=== PATIENT | female | born 1990 ===

== ENCOUNTER 2018-05-20 05:08 | Inpatient (IN) | payer BC ==
[~2018-05-20 05:08] MED LIST: Citric Acid/Sodium Citrate Solution 30 ML Cup PO ONE; Oxytocin/0.9 % Sodium Chloride 30 UNIT/500 ML BAG IV SCH; Sodium Chloride 0.9% 10 ML SDV IV PRN; Sodium Chloride 0.9% 10 ML Syringe FLUSH PRN; Sodium Chloride 0.9% 2.5 ML Syringe FLUSH PRN; ceFAZolin 2 GM in Premix Bag 1 BAG IV ONE
[2018-05-20] MEDS: Lactated Ringers 1,000 ML IV SCH ×2 (05:34→06:39)
--- NOTE | 2018-05-20 07:01 | PCM.PREANE ---
Preanesthetic Assessment - Anesthesia/Transfusion/Family Hx Anesthesia History: Prior Anesthesia Without Reaction Family History of Anesthesia Reaction: No Transfusion History: No Prior Transfusion(s) Intubation History: Unknown - Review of Systems General: No Symptoms Pulmonary: No Symptoms Cardiovascular: No Symptoms Gastrointestinal: No Symptoms Neurological: No Symptoms Other: Reports: None - Physical Assessment Height: 1.65 m Weight: 84.368 kg ASA Class: 2 Mental Status: Alert & Oriented x3 Airway Class: Mallampati = 1 Dentition: Reports: Normal Dentition, Broken Tooth/Teeth (upper right) Thyro-Mental Finger Breadths: 3 Mouth Opening Finger Breadths: 3 ROM/Head Extension: Full Lungs: Clear to Auscultation, Normal Respiratory Effort Cardiovascular: Regular Rate, Regular Rhythm - Lab Values: Laboratory Last Values WBC 11.08 K/uL (4.0-11.0) H 05/19/18 14:15 RBC 4.07 M/uL (4.30-5.90) L 05/19/18 14:15 Hgb 11.6 g/dL (12.0-16.0) L 05/19/18 14:15 Hct 33.7 % (36.0-46.0) L 05/19/18 14:15 MCV 82.8 fL (80.0-98.0) 05/19/18 14:15 MCH 28.5 pg (27.0-32.0) 05/19/18 14:15 MCHC 34.4 g/dL (31.0-37.0) 05/19/18 14:15 RDW Std Deviation 40.8 fl (28.0-62.0) 05/19/18 14:15 RDW Coeff of Leidy 14 % (11.0-15.0) 05/19/18 14:15 Plt Count 327 K/uL (150-400) 05/19/18 14:15 MPV 10.80 fL (7.40-12.00) 05/19/18 14:15 Nucleated RBC % 0.0 /100WBC 05/19/18 14:15 Nucleated RBCs # 0 K/uL 05/19/18 14:15 Blood Type O POSITIVE 05/19/18 14:15 Antibody Screen NEGATIVE 05/19/18 14:15 - Allergies Allergies/Adverse Reactions: Allergies Allergy/AdvReac Type Severity Reaction Status Date / Time No Known Allergies Allergy Verified 05/19/18 14:07 - Blood Blood Available: No - Anesthesia Plan Pre-Op Medication Ordered: None - Acknowledgements Anesthesia Type Planned: Spinal Pt an Appropriate Candidate for the Planned Anesthesia: Yes Alternatives and Risks of Anesthesia Discussed w Pt/Guardian: Yes Pt/Guardian Understands and Agrees with Anesthesia Plan: Yes PreAnesthesia Questionnaire HEENT History: Reports: None Cardiovascular History: Reports: None Respiratory History: Reports: None Gastrointestinal History: Reports: None Genitourinary History: Reports: None SURGICAL NURSE PRACTITIONER History: Reports: Musculoskeletal History: Reports: None Neurological History: Reports: None Psychiatric History: Reports: None Endocrine/Metabolic History: Reports: None Hematologic History: Reports: None Immunologic History: Reports: None Oncologic (Cancer) History: Reports: None Dermatologic History: Reports: None - Past Surgical History Head Surgeries/Procedures: Reports: None HEENT Surgical History: Reports: None Cardiovascular Surgical History: Reports: None Respiratory Surgical History: Reports: None GI Surgical History: Reports: None Female Surgical History: Reports: Section Endocrine Surgical History: Reports: None Neurological Surgical History: Reports: None Musculoskeletal Surgical History: Reports: None Oncologic Surgical History: Reports: None Dermatological Surgical History: Reports: None - SUBSTANCE USE Smoking Status *Q: Never Smoker Recreational Drug Use History: No - HOME MEDS Home Medications: Home Meds PNV95/Ferrous Fumarate/FA [ Vitamin Tablet] 1 tab PO DAILY 05/19/18 [ History] - CURRENT (IN HOUSE) MEDS Current Meds: Current Medications Lactated Ringer's (Ringers, Lactated) 1,000 mls @ 500 mls/hr IV BOLUS [facility] Last Admin: 05/20/18 06:39 Dose: 500 mls/hr Oxytocin/Sodium Chloride (Oxytocin 30 Unit/500 Ml-Ns) 30 unit in 500 mls @ 250 mls/hr IV TITRATE BETO Sodium Chloride (Saline Flush) 10 ml FLUSH ASDIRECTED PRN PRN Reason: Keep Vein Open Sodium Chloride (Saline Flush) 2.5 ml FLUSH ASDIRECTED PRN PRN Reason: Keep Vein Open Sodium Chloride (Normal Saline) 10 ml IV ASDIRECTED PRN PRN Reason: IV Use Discontinued Medications Citric Acid/Sodium Citrate (Bicitra Solution) 30 ml PO ONETIME ONE Stop: 05/19/18 13:31 Cefazolin Sodium/Dextrose 2 gm (/ Premix) 50 mls @ 100 mls/hr IV ONETIME ONE Stop: 05/19/18 13:59
[2018-05-20] MEDS ORDERED: fentaNYL 100 MCG/2 ML SDV ONE (07:05)
[2018-05-20] MEDS ORDERED: Ondansetron 4 MG/2 ML SDV ONE (07:05)
[2018-05-20] MEDS ORDERED: Morphine PF 10 MG/10 ML SDV ONE (07:05)
[2018-05-20] MEDS ORDERED: ePHEDrine 50 MG/ML SDV ONE (07:05)
[2018-05-20] MEDS ORDERED: Octyl 2-Cyanoacrylate 1 Tube ONE (07:46)
[2018-05-20] MEDS ORDERED: Citric Acid/Sodium Citrate Solution 30 ML Cup ONE (07:47)
--- NOTE | 2018-05-20 07:54 | PCM.LDHP ---
L&D History of Present Illness - General Date of Service: 05/20/18 Admit Problem/Dx: Patient Status Order with Admit Dx/Problem 05/19/18 13:30 Patient Status [ADT] Routine Admission Diagnosis/Problem Admission Diagnosis/Problem Source of Information: Patient History Limitations: Reports: No Limitations - History of Present Illness Improves with: Reports: None Worsens with: Reports: None Associated Symptoms: Reports: N - Related Data Allergies/Adverse Reactions: Allergies Allergy/AdvReac Type Severity Reaction Status Date / Time No Known Allergies Allergy Verified 05/19/18 14:07 Home Medications: Home Meds PNV95/Ferrous Fumarate/FA [ Vitamin Tablet] 1 tab PO DAILY 05/19/18 [ History] Past Medical History HEENT History: Reports: None Cardiovascular History: Reports: None Respiratory History: Reports: None Gastrointestinal History: Reports: None Genitourinary History: Reports: None MANAGER OF INTERNATIONAL History: Reports: Musculoskeletal History: Reports: None Neurological History: Reports: None Psychiatric History: Reports: None Endocrine/Metabolic History: Reports: None Hematologic History: Reports: None Immunologic History: Reports: None Oncologic (Cancer) History: Reports: None Dermatologic History: Reports: None - Past Surgical History Head Surgeries/Procedures: Reports: None HEENT Surgical History: Reports: None Cardiovascular Surgical History: Reports: None Respiratory Surgical History: Reports: None GI Surgical History: Reports: None Female Surgical History: Reports: Section Endocrine Surgical History: Reports: None Neurological Surgical History: Reports: None Musculoskeletal Surgical History: Reports: None Oncologic Surgical History: Reports: None Dermatological Surgical History: Reports: None Social & Family History - Family History Family Medical History: Noncontributory - Tobacco Use Smoking Status *Q: Never Smoker Second Hand Smoke Exposure: No - Caffeine Use Caffeine Use: Reports: None - Recreational Drug Use Recreational Drug Use: No H&P Review of Systems - Review of Systems: Review Of Systems: See Below General: Reports: No Symptoms HEENT: Reports: No Symptoms Pulmonary: Reports: No Symptoms Cardiovascular: Reports: No Symptoms Gastrointestinal: Reports: No Symptoms Genitourinary: Reports: No Symptoms Musculoskeletal: Reports: No Symptoms Skin: Reports: No Symptoms Psychiatric: Reports: No Symptoms Neurological: Reports: No Symptoms Hematologic/Lymphatic: Reports: No Symptoms Immunologic: Reports: No Symptoms L&D Exam - Exam Exam: See Below - Vital Signs Weight: 84.368 kg - OB Specific Contraction Intensity: Mild Movement: Active Heart Tones: Present Presentation: Vertex - Carrillo Score Carrillo Score Cervix Position: Posterior Carrillo Score Consistency: Medium Carrillo Score Effacement: 31-50% Carrillo Score Dilation: Closed Carrillo Score Infant's Station: -3 Carrillo Score Total: 2 - Exam General: Alert, Oriented HEENT: PERRLA, Conjunctiva Clear, EACs Clear, EOMI, Hearing Intact, Mucosa Moist & [place], Nares Patent, Normal Nasal Septum, Posterior Pharynx Clear, TMs Clear Neck: Supple, Trachea Midline Lungs: Clear to Auscultation, Normal Respiratory Effort Cardiovascular: Regular Rate, Regular Rhythm GI/Abdominal Exam: Normal Bowel Sounds, Soft, Non-Tender, No Organomegaly, No Distention, No Abnormal Bruit, No Mass, Pelvis Stable Rectal Exam: Normal Exam, Normal Rectal Tone Genitourinary: Normal external exam, Normal bimanual exam, Normal speculum exam Back Exam: Normal Inspection, Full Range of Motion Extremities: Normal Inspection, Normal Range of Motion, Non-Tender, No Pedal Edema, Normal Capillary Refill Skin: Warm, Dry, Intact Neurological: Cranial Nerves Intact, Reflexes Equal Bilateral Psychiatric: Alert, Normal Affect, Normal Mood - Patient Data Lab Results Last 24 hrs: Laboratory Results - last 24 hr 05/19/18 05/19/18 Range/Units 14:15 14:15 WBC 11.08 H (4.0-11.0) K/uL RBC 4.07 L (4.30-5.90) M/uL Hgb 11.6 L (12.0-16.0) g/dL Hct 33.7 L (36.0-46.0) % MCV 82.8 (80.0-98.0) fL MCH 28.5 (27.0-32.0) pg MCHC 34.4 (31.0-37.0) g/dL RDW Std Deviation 40.8 (28.0-62.0) fl RDW Coeff of Leidy 14 (11.0-15.0) % Plt Count 327 (150-400) K/uL MPV 10.80 (7.40-12.00) fL Nucleated RBC % 0.0 /100WBC Nucleated RBCs # 0 K/uL Blood Type O POSITIVE Antibody Screen NEGATIVE Result Diagrams: 05/19/18 14:15 Problem List Initiated/Reviewed/Updated: Yes Orders Last 24hrs: Active Orders 24 hr Category Date Time Status Patient Status [ADT] Routine ADT 05/19/18 13:30 Active Procedure Site Prep Instruct [RC] ASDIRECTED Care 05/19/18 13:30 Active Vital Signs [RC] PER UNIT ROUTINE Care 05/19/18 13:30 Active Lactated Ringers [Ringers, Lactated] 1,000 ml Med 05/19/18 13:30 Active IV BOLUS Oxytocin/0.9 % Sodium Chloride [Oxytocin 30 Unit/500 ML Med 05/19/18 13:30 Active -NS] 30 unit in 500 ml IV TITRATE Sodium Chloride 0.9% [Normal Saline] Med 05/19/18 13:30 Active 10 ml IV ASDIRECTED PRN Sodium Chloride 0.9% [Saline Flush] Med 05/19/18 13:30 Active 10 ml FLUSH ASDIRECTED PRN Sodium Chloride 0.9% [Saline Flush] Med 05/19/18 13:30 Active 2.5 ml FLUSH ASDIRECTED PRN Peripheral IV Insertion Adult [OM.PC] Routine Oth 05/19/18 13:30 Ordered Schedule Procedure [COMM] Per Unit Routine Oth 05/19/18 13:30 Ordered Resuscitation Status Routine Resus Stat 05/19/18 13:30 Ordered Medication Orders Lactated Ringer's (Ringers, Lactated) 1,000 mls @ 500 mls/hr IV BOLUS BETO Last Admin: 05/20/18 06:39 Dose: 500 mls/hr Infusion: 05/20/18 06:39 Dose: 500 mls/hr Admin: 05/20/18 05:34 Dose: 500 mls/hr Oxytocin/Sodium Chloride (Oxytocin 30 Unit/500 Ml-Ns) 30 unit in 500 mls @ 250 mls/hr IV TITRATE BETO Sodium Chloride (Saline Flush) 10 ml FLUSH ASDIRECTED PRN PRN Reason: Keep Vein Open Sodium Chloride (Saline Flush) 2.5 ml FLUSH ASDIRECTED PRN PRN Reason: Keep Vein Open Sodium Chloride (Normal Saline) 10 ml IV ASDIRECTED PRN PRN Reason: IV Use Assessment/Plan Comment:: IUP 39+3 admitted for elective repeat C/section.
[2018-05-20] MEDS ORDERED: Phenylephrine/Normal Saline 100 MCG/ML 10 ML Syringe ONE (08:33)
[2018-05-20] MEDS ORDERED: Ondansetron 4 MG/2 ML SDV IVPUSH PRN ×2 (08:51→08:52)
[2018-05-20] MEDS ORDERED: Naloxone 0.4 MG/ML Syringe IVPUSH PRN (08:51)
[2018-05-20] MEDS ORDERED: Nalbuphine 10 MG/1 ML Vial IVPUSH PRN (08:51)
[2018-05-20] MEDS ORDERED: diphenhydrAMINE 50 MG/ML SDV IVPUSH PRN ×2 (08:51→08:52)
[2018-05-20] MEDS ORDERED: Acetaminophen/oxyCODONE 325-5 MG Tab PO PRN ×2 (08:51→08:52)
[2018-05-20] MEDS ORDERED: fentaNYL 100 MCG/2 ML SDV IVPUSH PRN (08:51)
[2018-05-20] MEDS ORDERED: Bisacodyl 10 MG Supp RECTAL PRN (08:52)
[2018-05-20] MEDS ORDERED: Lanolin 100% Cream 7 GM Tube TOP PRN (08:52)
--- NOTE | 2018-05-20 08:55 | PCM.OPNOTE ---
- General Post-Op/Procedure Note Date of Surgery/Procedure: 05/20/18 Operative Procedure(s): Repeat C/Section Pre Op Diagnosis: IUP 39+3 previous C/section. Post-Op Diagnosis: Same Anesthesia Technique: Spinal Primary Surgeon: Lisandro Loza EBL in mLs: 700 Complications: None Condition: Good
[2018-05-20] MEDS ORDERED: Lactated Ringers 1,000 ML IV SCH (09:00)
[2018-05-20] MEDS: Ketorolac 30 MG/ML SDV IVPUSH SCH ×3 (09:22→21:23)
--- NOTE | 2018-05-20 14:48 | OR ---
SURGEON: Lisandro Loza MD DATE OF PROCEDURE: 05/20/2018 PREOPERATIVE DIAGNOSES: Intrauterine at 39 plus 3, previous section. POSTOPERATIVE DIAGNOSES: Intrauterine at 39 plus 3, previous section. PROCEDURE PERFORMED: Repeat low-transverse section. WHITING MACHINE OPERATOR: Raya Samano, student nurse bay stocker. ANESTHESIA: Spinal, Dr. Osorio. ESTIMATED BLOOD LOSS: 700 mL. COMPLICATIONS: None. FINDING: Normal male fetus. score reported to be 8 and 9. The weight is not available. INDICATION FOR SURGERY: This patient is 39 plus 3 weeks. She had a previous section. She is followed in our clinic primarily by me. She is admitted for elective repeat section. PROCEDURE DETAILS: The patient was brought to the OR, properly identified, and after adequate level of spinal anesthesia with a Stallworth catheter in the bladder, the patient was prepped and draped in sterile fashion as usual. Low transverse Pfannenstiel skin incision through the old scar was done. The Bi's fascia and rectus fascia were opened in the direction of the incision. The 2 recti muscles upward and downward, and then the peritoneal cavity was entered. Bladder flap was raised in the usual manner pushing the bladder away from the lower uterine segment. Low transverse uterine incision was done and extended manually with hand. Fetus was in the vertex position, delivered without any problem and it cried immediately. score reported to be 8 and 9 later on and the weight is not available. The placenta delivered spontaneous, complete, and intact, and repair of the lower uterine segment was done with 2-0 Vicryl continuous interlocking in 2 layers. Reperitonealization done with 3-0 Vicryl continuous, and then, the peritoneal cavity evacuated completely from all blood and blood clot and closed with 3-0 Vicryl continuous. The rectus fascia was closed with #1 PDS continuous and the Bi's fascia with 3-0 Vicryl continuous. The skin closed with skin clips, Insorb, and Dermabond. Instrument and sponge counts were correct x2. The patient tolerated the procedure well, went to recovery room in stable general condition. NILES / HESHAM /[id number]
[2018-05-20] MEDS: Docusate Sodium 100 MG Cap PO SCH ×2 (20:09→21:23)
[2018-05-21] MEDS: Ketorolac 30 MG/ML SDV IVPUSH SCH ×2 (03:09→10:10)
[2018-05-21] MEDS: Docusate Sodium 100 MG Cap PO SCH ×2 (10:11→21:29)
--- NOTE | 2018-05-21 11:20 | PCM.PNPP ---
- General Info Date of Service: 05/21/18 Functional Status: Reports: Pain Controlled - Review of Systems General: Reports: No Symptoms HEENT: Reports: No Symptoms Pulmonary: Reports: No Symptoms Cardiovascular: Reports: No Symptoms Gastrointestinal: Reports: No Symptoms Genitourinary: Reports: No Symptoms Musculoskeletal: Reports: No Symptoms Skin: Reports: No Symptoms Neurological: Reports: No Symptoms Psychiatric: Reports: No Symptoms - General Info Date of Service: 05/21/18 - Patient Data Vital Signs - Most Recent: Last Vital Signs Temp 36.6 C 05/21/18 04:15 Pulse 74 05/21/18 04:15 Resp 18 05/21/18 07:00 BP 111/60 05/21/18 04:15 Pulse Ox 97 05/21/18 07:00 Weight - Most Recent: 84.368 kg I&O - Last 24 Hours: Intake & Output 05/20/18 05/21/18 05/21/18 22:59 06:59 14:59 Intake Total 1300 Output Total 1800 Balance -500 Lab Results - Last 24 Hours: Laboratory Results - last 24 hr 05/21/18 Range/Units 05:45 Hgb 10.5 L (12.0-16.0) g/dL Hct 31.6 L (36.0-46.0) % Med Orders - Current: Current Medications Bisacodyl (Dulcolax) 10 mg RECTAL ONETIME PRN PRN Reason: Constipation Diphenhydramine HCl (Benadryl) 25 mg IVPUSH Q6H PRN PRN Reason: Itching or Nausea Docusate Sodium (Colace) 100 mg PO BID [facility] Last Admin: 05/21/18 10:11 Dose: 100 mg Emollient Ointment (Lansinoh Hpa) 0 gm TOP ASDIRECTED PRN PRN Reason: Sore Nipples Fentanyl (Sublimaze) 50 mcg IVPUSH Q1H PRN PRN Reason: Pain (severe 7-10) Lactated Ringer's (Ringers, Lactated) 1,000 mls @ 500 mls/hr IV BOLUS [facility] Last Admin: 05/20/18 06:39 Dose: 500 mls/hr Oxytocin/Sodium Chloride (Oxytocin 30 Unit/500 Ml-Ns) 30 unit in 500 mls @ 250 mls/hr IV TITRATE [facility] Lactated Ringer's (Ringers, Lactated) 1,000 mls @ 125 mls/hr IV ASDIRECTED BETO Last Admin: 05/20/18 13:04 Dose: 125 mls/hr Ibuprofen (Motrin) 800 mg PO Q8H PRN PRN Reason: mild pain or fever Nalbuphine HCl (Nubain) 5 mg IVPUSH ASDIRECTED PRN PRN Reason: Itching Last Admin: 05/20/18 10:57 Dose: 5 mg Ondansetron HCl (Zofran) 4 mg IVPUSH Q6H PRN PRN Reason: Nausea Ondansetron HCl (Zofran) 4 mg IVPUSH Q4H PRN PRN Reason: Nausea/Vomiting Oxycodone/Acetaminophen (Percocet 325-5 Mg) 2 tab PO Q6H PRN PRN Reason: Pain (moderate 4-6) Oxycodone/Acetaminophen (Percocet 325-5 Mg) 1 tab PO Q4H PRN PRN Reason: Pain (moderate 4-6) Oxycodone/Acetaminophen (Percocet 325-5 Mg) 2 tab PO Q4H PRN PRN Reason: Pain (moderate 4-6) Sodium Chloride (Saline Flush) 10 ml FLUSH ASDIRECTED PRN PRN Reason: Keep Vein Open Sodium Chloride (Saline Flush) 2.5 ml FLUSH ASDIRECTED PRN PRN Reason: Keep Vein Open Sodium Chloride (Normal Saline) 10 ml IV ASDIRECTED PRN PRN Reason: IV Use Discontinued Medications Citric Acid/Sodium Citrate (Bicitra Solution) 30 ml PO ONETIME ONE Stop: 05/19/18 13:31 Last Admin: 05/20/18 07:50 Dose: 30 ml Citric Acid/Sodium Citrate (Bicitra Solution) Confirm Administered Dose 30 ml .ROUTE .STK-MED ONE Stop: 05/20/18 07:48 Last Admin: 05/20/18 20:08 Dose: Not Given Diphenhydramine HCl (Benadryl) 25 mg IVPUSH Q4H PRN PRN Reason: Itching Stop: 05/21/18 08:51 Ephedrine Sulfate (Ephedrine Sulfate) Confirm Administered Dose 50 mg .ROUTE .STK-MED ONE Stop: 05/20/18 07:06 Fentanyl (Sublimaze) Confirm Administered Dose 100 mcg .ROUTE .STK-MED ONE Stop: 05/20/18 07:06 Cefazolin Sodium/Dextrose 2 gm (/ Premix) 50 mls @ 100 mls/hr IV ONETIME ONE Stop: 05/19/18 13:59 Last Admin: 05/20/18 20:08 Dose: Not Given Ketorolac Tromethamine (Toradol) 30 mg IVPUSH Q6H BETO Stop: 05/21/18 09:01 Last Admin: 05/21/18 10:10 Dose: 30 mg Morphine Sulfate (Duramorph Pf) Confirm Administered Dose 10 mg .ROUTE .STK-MED ONE Stop: 05/20/18 07:06 Naloxone HCl (Narcan) 0.1 mg IVPUSH ONETIME PRN PRN Reason: Respiratory Depression Stop: 05/21/18 08:51 Octyl Cyanoacrylate (Dermabond Advance) Confirm Administered Dose 1 applic .ROUTE .STK-MED ONE Stop: 05/20/18 07:47 Last Admin: 05/20/18 20:08 Dose: Not Given Ondansetron HCl (Zofran) Confirm Administered Dose 4 mg .ROUTE .STK-MED ONE Stop: 05/20/18 07:06 Phenylephrine HCl (Phenylephrine In Ns 100 Mcg/Ml) Confirm Administered Dose 1 mg .ROUTE .STK-MED ONE Stop: 05/20/18 08:34 - Interaction Infant Disposition, : [place] in Room with Family Interaction: Holding Infant Feeding: Attempted ; Nursed Fair/Poor Support Person: - Recovery Exam Fundal Tone: Firm Fundal Level: At Umbilicus Fundal Placement: Midline Lochia Amount: Scant Lochia Color: Rubra/Red Perineum Description: Intact, Minimal Bruising/Swelling Episiotomy/Laceration: None Bladder Status: Indwelling Catheter in Place Urinary Elimination: Indwelling Catheter - Exam General: Alert, Oriented HEENT: Pupils Equal Neck: Supple Lungs: Clear to Auscultation, Normal Respiratory Effort Cardiovascular: Regular Rate, Regular Rhythm GI/Abdominal Exam: Normal Bowel Sounds, Soft, Non-Tender, No Organomegaly, No Distention, No Abnormal Bruit, No Mass, Pelvis Stable Extremities: Normal Inspection, Normal Range of Motion, Non-Tender, No Pedal Edema, Normal Capillary Refill Skin: Warm, Dry, Intact Wound/Incisions: Healing Well Neurological: No New Focal Deficit Psy/Mental Status: Alert, Normal Affect, Normal Mood - Problem List Review Problem List Initiated/Reviewed/Updated: Yes - My Orders Last 24 Hours: My Active Orders 05/20/18 Dinner Regular Diet [DIET] - Assessment Assessment:: Status post section postoperative day 1 patient is doing well. Regular care considering discharge in a.m. - Plan Plan:: IUP 39+3 admitted for elective repeat C/section.
[2018-05-21] MEDS: Ibuprofen 800 MG Tab PO PRN (16:36)
--- NOTE | 2018-05-21 16:46 | PCM48HPAN ---
Post Anesthesia Note - EVALUATION WITHIN 48HRS OF ANESTHETIC Vital Signs in Normal Range: Yes Patient Participated in Evaluation: Yes Respiratory Function Stable: Yes Airway Patent: Yes Cardiovascular Function Stable: Yes Hydration Status Stable: Yes Pain Control Satisfactory: Yes Nausea and Vomiting Control Satisfactory: Yes Mental Status Recovered: Yes Resp Rate: 18 - COMMENTS/OBSERVATIONS Free Text/Narrative:: No anesthesia complications.
[2018-05-21] MEDS: Acetaminophen/oxyCODONE 325-5 MG Tab PO PRN (21:29)
[2018-05-22] MEDS: Acetaminophen/oxyCODONE 325-5 MG Tab PO PRN ×2 (01:47→13:25)
[2018-05-22] MEDS: Ibuprofen 800 MG Tab PO PRN ×2 (01:47→09:37)
[2018-05-22] MEDS: Docusate Sodium 100 MG Cap PO SCH (09:37)
--- NOTE | 2018-05-22 11:53 | PCM.DCSUM1 ---
Discharge Summary - Hospital Course Free Text/Narrative:: Discharge home with infant. Follow up in 6 weeks for visit. Diagnosis: Stroke: No - Discharge Data Discharge Date: 05/22/18 Discharge Disposition: Home, Self-Care 01 Condition: Good - Patient Summary/Data Operative Procedure(s) Performed: Repeat C/Section - Patient Instructions Diet: Usual Diet as Tolerated Activity: As Tolerated, No Strenuous Activities, Rest and Relax Today Driving: Do Not Drive Showering/Bathing: May Shower Notify Provider of: Fever, Increased Pain, Swelling and Redness, Drainage, Nausea and/or Vomiting Other/Special Instructions: Discharge home with infant. Follow up in 6 weeks for visit. - Discharge Plan *PRESCRIPTION DRUG MONITORING PROGRAM REVIEWED*: Not Applicable *COPY OF PRESCRIPTION DRUG MONITORING REPORT IN PATIENT DANIELA: Not Applicable Home Medications: Home Meds PNV95/Ferrous Fumarate/FA [ Vitamin Tablet] 1 tab PO DAILY 05/19/18 [ History] Oxygen Therapy Mode: Room Air Patient Handouts: Home Care Instructions for Mom, Care After Delivery Referrals: [facility] [Outside] Lisandro Loza MD [Physician] - 06/30/18 1:30 pm - Discharge Summary/Plan Comment DC Time >30 min.: Yes - General Info Date of Service: 05/22/18 Admission Dx/Problem (Free Text: Patient Status Order with Admit Dx/Problem 05/19/18 13:30 Patient Status [ADT] Routine Admission Diagnosis/Problem Admission Diagnosis/Problem Functional Status: Reports: Pain Controlled, Tolerating Diet, Ambulating, Urinating - Review of Systems General: Reports: No Symptoms HEENT: Reports: No Symptoms Pulmonary: Reports: No Symptoms Cardiovascular: Reports: No Symptoms Gastrointestinal: Reports: No Symptoms Genitourinary: Reports: No Symptoms Musculoskeletal: Reports: No Symptoms Skin: Reports: No Symptoms Neurological: Reports: No Symptoms Psychiatric: Reports: No Symptoms - Patient Data Vitals - Most Recent: Last Vital Signs Temp 36.3 C 05/22/18 09:00 Pulse 82 05/22/18 09:00 Resp 17 05/22/18 09:00 BP 117/83 05/22/18 09:00 Pulse Ox 97 05/22/18 09:00 Weight - Most Recent: 84.368 kg Med Orders - Current: Current Medications Bisacodyl (Dulcolax) 10 mg RECTAL ONETIME PRN PRN Reason: Constipation Diphenhydramine HCl (Benadryl) 25 mg IVPUSH Q6H PRN PRN Reason: Itching or Nausea Docusate Sodium (Colace) 100 mg PO BID [facility] Last Admin: 05/22/18 09:37 Dose: 100 mg Emollient Ointment (Lansinoh Hpa) 0 gm TOP ASDIRECTED PRN PRN Reason: Sore Nipples Last Admin: 05/21/18 19:17 Dose: 1 tube Fentanyl (Sublimaze) 50 mcg IVPUSH Q1H PRN PRN Reason: Pain (severe 7-10) Lactated Ringer's (Ringers, Lactated) 1,000 mls @ 500 mls/hr IV BOLUS [facility] Last Admin: 05/20/18 06:39 Dose: 500 mls/hr Oxytocin/Sodium Chloride (Oxytocin 30 Unit/500 Ml-Ns) 30 unit in 500 mls @ 250 mls/hr IV TITRATE [facility] Lactated Ringer's (Ringers, Lactated) 1,000 mls @ 125 mls/hr IV ASDIRECTED [facility] Last Admin: 05/20/18 13:04 Dose: 125 mls/hr Ibuprofen (Motrin) 800 mg PO Q8H PRN PRN Reason: mild pain or fever Last Admin: 05/22/18 09:37 Dose: 800 mg Nalbuphine HCl (Nubain) 5 mg IVPUSH ASDIRECTED PRN PRN Reason: Itching Last Admin: 05/20/18 10:57 Dose: 5 mg Ondansetron HCl (Zofran) 4 mg IVPUSH Q6H PRN PRN Reason: Nausea Ondansetron HCl (Zofran) 4 mg IVPUSH Q4H PRN PRN Reason: Nausea/Vomiting Oxycodone/Acetaminophen (Percocet 325-5 Mg) 2 tab PO Q6H PRN PRN Reason: Pain (moderate 4-6) Oxycodone/Acetaminophen (Percocet 325-5 Mg) 1 tab PO Q4H PRN PRN Reason: Pain (moderate 4-6) Last Admin: 05/22/18 01:47 Dose: 1 tab Oxycodone/Acetaminophen (Percocet 325-5 Mg) 2 tab PO Q4H PRN PRN Reason: Pain (moderate 4-6) Sodium Chloride (Saline Flush) 10 ml FLUSH ASDIRECTED PRN PRN Reason: Keep Vein Open Sodium Chloride (Saline Flush) 2.5 ml FLUSH ASDIRECTED PRN PRN Reason: Keep Vein Open Sodium Chloride (Normal Saline) 10 ml IV ASDIRECTED PRN PRN Reason: IV Use Discontinued Medications Citric Acid/Sodium Citrate (Bicitra Solution) 30 ml PO ONETIME ONE Stop: 05/19/18 13:31 Last Admin: 05/20/18 07:50 Dose: 30 ml Citric Acid/Sodium Citrate (Bicitra Solution) Confirm Administered Dose 30 ml .ROUTE .STK-MED ONE Stop: 05/20/18 07:48 Last Admin: 05/20/18 20:08 Dose: Not Given Diphenhydramine HCl (Benadryl) 25 mg IVPUSH Q4H PRN PRN Reason: Itching Stop: 05/21/18 08:51 Ephedrine Sulfate (Ephedrine Sulfate) Confirm Administered Dose 50 mg .ROUTE .STK-MED ONE Stop: 05/20/18 07:06 Fentanyl (Sublimaze) Confirm Administered Dose 100 mcg .ROUTE .STK-MED ONE Stop: 05/20/18 07:06 Cefazolin Sodium/Dextrose 2 gm (/ Premix) 50 mls @ 100 mls/hr IV ONETIME ONE Stop: 05/19/18 13:59 Last Admin: 05/20/18 20:08 Dose: Not Given Ketorolac Tromethamine (Toradol) 30 mg IVPUSH Q6H BETO Stop: 05/21/18 09:01 Last Admin: 05/21/18 10:10 Dose: 30 mg Morphine Sulfate (Duramorph Pf) Confirm Administered Dose 10 mg .ROUTE .STK-MED ONE Stop: 05/20/18 07:06 Naloxone HCl (Narcan) 0.1 mg IVPUSH ONETIME PRN PRN Reason: Respiratory Depression Stop: 05/21/18 08:51 Octyl Cyanoacrylate (Dermabond Advance) Confirm Administered Dose 1 applic .ROUTE .STK-MED ONE Stop: 05/20/18 07:47 Last Admin: 05/20/18 20:08 Dose: Not Given Ondansetron HCl (Zofran) Confirm Administered Dose 4 mg .ROUTE .STK-MED ONE Stop: 05/20/18 07:06 Phenylephrine HCl (Phenylephrine In Ns 100 Mcg/Ml) Confirm Administered Dose 1 mg .ROUTE .STK-MED ONE Stop: 05/20/18 08:34 - Exam General: Reports: Alert, Oriented, Cooperative, No Acute Distress Lungs: Reports: Clear to Auscultation, Normal Respiratory Effort Cardiovascular: Reports: Regular Rate, Regular Rhythm, No Murmurs GI/Abdominal Exam: Soft, Non-Tender (Female) Exam: Deferred, Vaginal Bleeding Rectal (Female) Exam: Deferred Back Exam: Reports: Normal Inspection, Full Range of Motion Extremities: Normal Inspection, Normal Range of Motion, Non-Tender, No Pedal Edema, Normal Capillary Refill Skin: Reports: Warm, Dry, Intact Wound/Incisions: Reports: Healing Well, No Drainage. Denies: Erythema Neurological: Reports: No New Focal Deficit, Normal Gait, Normal Speech, Normal Tone, Strength Equal Bilateral Psy/Mental Status: Reports: Alert, Normal Affect, Normal Mood
== END 2018-05-22 13:35 | disposition home or self-care (01) | DRG 540 ==
LOC: MW.OB 05:08
PROVIDERS: ADMIT Obstetrics & Gynecology; ATTEND Obstetrics & Gynecology
PROC: 10D00Z1 Extraction of Products of Conception, Low, Open Approach (ICD-10-PCS; principal; 2018-05-20)
DX: O34.211 Maternal care for low transverse scar from previous cesarean delivery (principal); N85.8 Other specified noninflammatory disorders of uterus; Z3A.39 39 weeks gestation of pregnancy; Z37.0 Single live birth
CPT/HCPCS: 36415; 59025; 85014; 85018; 85027; 86850; 86900; 86901; A9270-GY; J0690; J1885; J2270; J2300; J2370; J2405; J3010; J7120

== ENCOUNTER 2020-09-11 14:15 | Observation (INO) | payer BC ==
[2020-09-11] MEDS: Lactated Ringers 1,000 ML IV SCH ×2 (15:51→18:00)
--- NOTE | 2020-09-11 17:12 | PCM.SN.2 ---
- Free Text/Narrative Note: 30 year old at 35w1d presented to [facility] for routine AUNG. Had BPP with NST due to maternal obesity and was noted to have LVP of 2cm, consistent with oligohydramnios. Patient to be admitted for observation overnight and IV fluid hydration. Upon arrival to labor and delivery, FHTs 130s, moderate variability and payal ctive. [place] is quiet. Patient reports good movement and denies leaking fluid or vaginal bleeding. Regular diet as tolerated while in the hospital. Will repeat US in the morning to reassess ANTOLIN/LVP.
[2020-09-12] MEDS: Lactated Ringers 1,000 ML IV SCH ×2 (00:24→07:11)
[2020-09-12] MEDS ORDERED: Betamethasone Acetate/Betamethasone Sod Phosphate 30 MG/5 ML MDV IM ONE (09:20)
--- NOTE | 2020-09-12 09:20 | PCM.PN ---
- General Info Date of Service: 09/12/20 Admission Dx/Problem (Free Text): Oligohydramnios Subjective Update: Resting comfortably in bed. Reports good movement. Denies leaking fluid or vaginal bleeding. - Patient Data Weight - Most Recent: 191 lb I&O - Last 24 Hours: Intake & Output 09/11/20 09/12/20 09/12/20 22:59 06:59 14:59 Intake Total 1000 Balance 1000 Lab Results Last 24 Hours: Laboratory Results - last 24 hr 09/11/20 Range/Units 15:20 SARS-CoV-2 RNA (ALENA) NEGATIVE (NEGATIVE) Med Orders - Current: Current Medications Lactated Ringer's (Ringers, Lactated) 1,000 mls @ 500 mls/hr IV BOLUS BETO Last Admin: 09/12/20 07:11 Dose: 150 mls/hr Documented by: - Exam General: Alert Lungs: Normal Respiratory Effort Cardiovascular: Regular Rate GI/Abdominal Exam: Soft, Non-Tender Extremities: Normal Inspection, Normal Range of Motion, Non-Tender, No Pedal Edema Skin: Warm, Dry, Intact Neurological: No New Focal Deficit Psy/Mental Status: Normal Mood - Patient Data Lab Results Last 24 hrs: Laboratory Results - last 24 hr 09/11/20 Range/Units 15:20 SARS-CoV-2 RNA (ALENA) NEGATIVE (NEGATIVE) Sepsis Event Note - Evaluation Sepsis Screening Result: No Definite Risk - Problem List Review Problem List Initiated/Reviewed/Updated: Yes - My Orders Last 24 Hours: My Active Orders 09/11/20 14:39 Patient Status [ADT] Routine Non Stress Test [RC] PER UNIT ROUTINE Up ad Leslie [RC] ASDIRECTED Vaginal Exam [RC] Click to Edit Vital Signs [RC] PER UNIT ROUTINE Resuscitation Status Routine 09/11/20 14:45 Lactated Ringers [Ringers, Lactated] 1,000 ml IV BOLUS 09/11/20 Dinner Regular Diet [DIET] 09/12/20 08:00 OB Ltd 1 or More Fetus [US] Routine - Assessment Assessment:: 30 year old at 35w2d (EDC 10/15/2020 by LMP c/w 1st trimester US) with oligohydramnios - Plan Plan:: Oligohydramnios * s/p overnight IVF hydration * Preliminary US report of LVP 2cm this AM * Scheduled for 1. NST at [facility] on 09/14/2020 2. BPP/NST at [facility] on 09/16/2020 with possible delivery 36 0/7 - 36 6/7 wga if oligohydramnios persists * Betamethasone IM today and tomorrow for lung development Dispo: stable. Reviewed strict precautions for when to return to the hospital or notify physician including decreased movement.
--- NOTE | 2020-09-12 09:33 | US ---
INDICATION: Oligohydramnios. TECHNIQUE: Ultrasound OB pelvis transabdominal. Real-time henry-scale imaging of the fetus was performed without stress testing. COMPARISON: None. FINDINGS: Sonographic imaging demonstrates a single living intrauterine gestation. Fetus demonstrates a regular cardiac rate of 138 beats per minute. Fetus has a cephalic orientation. Placenta is anterior. Biometric measurements: Biparietal diameter: 8.8 cm, 36 weeks 0 days. Head circumference: 31.8 cm, 36 weeks 0 days. Abdominal circumference: 31.4 cm, 35 weeks 3 days. Femur length: 6.9 cm, 35 weeks 6 days. Estimated weight: 2719, 40th percentile. Estimated ultrasound age by today`s measurements is 35 weeks 6 days with an estimated date of delivery October 11, 2020. Amniotic fluid volume appears low with a single deepest pocket of 2 cm. breathing movements, motion, and tone were all observed. IMPRESSION: Single viable intrauterine with a biophysical profile 6/8. There is oligohydramnios. Ultrasound and clinical dating are concordant. Dictated by Earnest Lanier MD @ 09/12/2020 9:31:[address] Earnest Lanier @ Sep 12 2020 9:31AM
== END 2020-09-12 10:17 | disposition home or self-care (01) ==
LOC: MW.OBCHECK 14:15 → MW.OB 14:24 → MW.OBCHECK 14:38 → MW.OB 14:39
PROVIDERS: ADMIT Obstetrics & Gynecology; ATTEND Obstetrics & Gynecology
DX: O41.03X0 Oligohydramnios, third trimester, not applicable or unspecified (principal); O99.213 Obesity complicating pregnancy, third trimester; Z3A.35 35 weeks gestation of pregnancy; Z20.822 Contact with and (suspected) exposure to COVID-19
CPT/HCPCS: 59025; 76815; 87635; 87653; J0702; J7120; U0002

== ENCOUNTER 2020-10-08 05:05 | Inpatient (IN) | payer BC ==
[2020-10-08] MEDS ORDERED: Sodium Chloride 0.9% 2.5 ML Syringe FLUSH PRN (05:09)
[2020-10-08] MEDS ORDERED: Sodium Chloride 0.9% 10 ML SDV IV PRN (05:09)
[2020-10-08] MEDS ORDERED: Citric Acid/Sodium Citrate Solution 30 ML Cup PO ONE (05:09)
[2020-10-08] MEDS ORDERED: Sodium Chloride 0.9% 10 ML Syringe FLUSH PRN (05:09)
[2020-10-08] MEDS ORDERED: Oxytocin/0.9 % Sodium Chloride 30 UNIT/500 ML BAG IV SCH (05:15)
[2020-10-08] MEDS: Lactated Ringers 1,000 ML IV SCH ×4 (05:45→18:43)
[2020-10-08] MEDS ORDERED: fentaNYL 100 MCG/2 ML SDV ONE (07:20)
[2020-10-08] MEDS ORDERED: Morphine PF 10 MG/10 ML SDV ONE (07:21)
--- NOTE | 2020-10-08 07:35 | PCM.PREANE ---
Preanesthetic Assessment - Anesthesia/Transfusion/Family Hx Anesthesia History: Prior Anesthesia Without Reaction Family History of Anesthesia Reaction: No Transfusion History: No Prior Transfusion(s) Type of Transfusion Reactions: Reports: Unknown Intubation History: Unknown - Review of Systems General: No Symptoms Pulmonary: No Symptoms Cardiovascular: No Symptoms Gastrointestinal: No Symptoms Neurological: No Symptoms Other: Reports: None - Physical Assessment Height: 5 ft 4.17 in Weight: 195 lb 0.017 oz ASA Class: 2 Mental Status: Alert & Oriented x3 Airway Class: Mallampati = 3 Dentition: Reports: Normal Dentition ROM/Head Extension: Full Lungs: Clear to Auscultation, Normal Respiratory Effort Cardiovascular: Regular Rate, Regular Rhythm - Lab Values: Laboratory Last Values WBC 11.40 K/uL (4.0-11.0) H 10/08/20 05:40 RBC 3.87 M/uL (4.30-5.90) L 10/08/20 05:40 Hgb 10.9 g/dL (12.0-16.0) L 10/08/20 05:40 Hct 32.0 % (36.0-46.0) L 10/08/20 05:40 MCV 82.7 fL (80.0-98.0) 10/08/20 05:40 MCH 28.2 pg (27.0-32.0) 10/08/20 05:40 MCHC 34.1 g/dL (31.0-37.0) 10/08/20 05:40 RDW Std Deviation 40.3 fl (28.0-62.0) 10/08/20 05:40 RDW Coeff of Leidy 13 % (11.0-15.0) 10/08/20 05:40 Plt Count 272 K/uL (150-400) 10/08/20 05:40 MPV 11.00 fL (7.40-12.00) 10/08/20 05:40 Nucleated RBC % 0.0 /100WBC 10/08/20 05:40 Nucleated RBCs # 0 K/uL 10/08/20 05:40 Blood Type O POSITIVE 10/08/20 05:40 Antibody Screen NEGATIVE 10/08/20 05:40 - Allergies Allergies/Adverse Reactions: Allergies Allergy/AdvReac Type Severity Reaction Status Date / Time No Known Allergies Allergy Verified 10/02/20 07:41 - Blood Blood Available: Yes Product(s) Available: PRBC - Anesthesia Plan Pre-Op Medication Ordered: None - Acknowledgements Anesthesia Type Planned: Spinal Pt an Appropriate Candidate for the Planned Anesthesia: Yes Alternatives and Risks of Anesthesia Discussed w Pt/Guardian: Yes Pt/Guardian Understands and Agrees with Anesthesia Plan: Yes PreAnesthesia Questionnaire HEENT History: Reports: None Cardiovascular History: Reports: None Respiratory History: Reports: None Gastrointestinal History: Reports: None Other Gastrointestinal History: occasional heartburn Genitourinary History: Reports: None CHIEF SCIENCE OFFICER History: Reports: Musculoskeletal History: Reports: None Neurological History: Reports: None Psychiatric History: Reports: None Endocrine/Metabolic History: Reports: None Hematologic History: Reports: None Immunologic History: Reports: None Oncologic (Cancer) History: Reports: None Dermatologic History: Reports: None - Infectious Disease History Infectious Disease History: Reports: None - Past Surgical History Head Surgeries/Procedures: Reports: None HEENT Surgical History: Reports: None Cardiovascular Surgical History: Reports: None Respiratory Surgical History: Reports: None GI Surgical History: Reports: None Female Surgical History: Reports: Section Other Female Surgeries/Procedures: x2 Endocrine Surgical History: Reports: None Neurological Surgical History: Reports: None Musculoskeletal Surgical History: Reports: None Oncologic Surgical History: Reports: None Dermatological Surgical History: Reports: None - SUBSTANCE USE Tobacco Use Status *Q: Never Tobacco User Second Hand Smoke Exposure: No Recreational Drug Use History: No - HOME MEDS Home Medications: Home Meds Pnv No.95/Ferrous Fum/Folic AC [ Vitamin Tablet] 1 tab PO DAILY 05/19/18 [History] Folic Acid 1 tab PO DAILY 10/02/20 [History] - CURRENT (IN HOUSE) MEDS Current Meds: Current Medications Oxytocin/Sodium Chloride (Oxytocin 30 Unit/500 Ml-Ns) 30 unit in 500 mls @ 250 mls/hr IV TITRATE BETO Lactated Ringer's (Ringers, Lactated) 1,000 mls @ 500 mls/hr IV BOLUS BETO Last Admin: 10/08/20 06:21 Dose: 500 mls/hr Documented by: Sodium Chloride (Sodium Chloride 0.9% 10 Ml Syringe) 10 ml FLUSH ASDIRECTED PRN PRN Reason: Keep Vein Open Sodium Chloride (Sodium Chloride 0.9% 2.5 Ml Syringe) 2.5 ml FLUSH ASDIRECTED PRN PRN Reason: Keep Vein Open Sodium Chloride (Sodium Chloride 0.9% 10 Ml Sdv) 10 ml IV ASDIRECTED PRN PRN Reason: IV Use Discontinued Medications Citric Acid/Sodium Citrate (Citric Acid/Sodium Citrate Solution 30 Ml Cup) 30 ml PO ONETIME ONE Stop: 10/08/20 05:10 Fentanyl (Fentanyl 100 Mcg/2 Ml Sdv) Confirm Administered Dose 100 mcg .ROUTE .STK-MED ONE Stop: 10/08/20 07:21 Morphine Sulfate (Morphine Pf 10 Mg/10 Ml Sdv) Confirm Administered Dose 10 mg .ROUTE .STK-MED ONE Stop: 10/08/20 07:22
[2020-10-08] MEDS ORDERED: Octyl 2-Cyanoacrylate 1 Tube ONE (07:49)
[2020-10-08] MEDS ORDERED: Oxytocin 10 Units/1 ML SDV ONE (08:20)
[2020-10-08] MEDS ORDERED: Ketorolac 30 MG/ML SDV ONE (08:20)
[2020-10-08] MEDS ORDERED: Ondansetron 4 MG/2 ML SDV ONE (08:20)
[2020-10-08] MEDS ORDERED: diphenhydrAMINE 50 MG/ML SDV IVPUSH PRN (09:23)
[2020-10-08] MEDS ORDERED: Ibuprofen 800 MG Tab PO PRN (09:23)
[2020-10-08] MEDS ORDERED: Misoprostol 200 MCG Tab RECTAL PRN (09:23)
[2020-10-08] MEDS ORDERED: Bisacodyl 10 MG Supp RECTAL PRN (09:23)
[2020-10-08] MEDS ORDERED: Lanolin 100% Cream 7 GM Tube TOP PRN (09:23)
[2020-10-08] MEDS ORDERED: Oxytocin 10 Units/1 ML SDV IM PRN (09:23)
[2020-10-08] MEDS ORDERED: Tranexamic Acid 1,000 MG in Sodium Chloride 0.9% 100 ML IV PRN (09:23)
[2020-10-08] MEDS ORDERED: Methylergonovine 0.2 MG/1 ML Amp IM PRN (09:23)
[2020-10-08] MEDS ORDERED: Acetaminophen/oxyCODONE 325-5 MG Tab PO PRN ×2 (09:23)
[2020-10-08] MEDS ORDERED: Ondansetron 4 MG/2 ML SDV IVPUSH PRN (09:23)
--- NOTE | 2020-10-08 09:23 | PCM.OPNOTE ---
- General Post-Op/Procedure Note Date of Surgery/Procedure: 10/08/20 Operative Procedure(s): Repeat low transverse section. Pre Op Diagnosis: 1. Single intrauterine pregancy at 39w0d. 2. Previous history of prior cesearan setion X2 Post-Op Diagnosis: 1. Single intrauterine pregancy at 39w0d. 2. Previous history of prior cesearan setion X2 Anesthesia Technique: Epidural Primary Surgeon: Nidhi Naranjo Anesthesia Provider: Fermin Hernandez Gas Turbine Powerplant Mechanic Helper: Anaya Farmer Fluid Replacement, Intraop: 1,000 Output, Urine Amount: 100 (Clear urine during procedure) EBL in mLs: 600 Complications: None Condition: Good
[2020-10-08] MEDS ORDERED: Ketorolac 30 MG/ML SDV IVPUSH SCH (09:30)
[2020-10-08] MEDS ORDERED: Oxytocin/Lactated Ringers 30 UNIT/500 ML BAG IV SCH (09:30)
--- NOTE | 2020-10-08 12:11 | OR ---
SURGEON: NIDHI SWIFT MD DATE OF PROCEDURE: 10/08/2020 PREOPERATIVE DIAGNOSES: 1. Term intrauterine at 39 weeks 0 days. 2. Previous section x2. POSTOPERATIVE DIAGNOSES: 1. Term intrauterine at 39 weeks 0 days. 2. Previous section x2. PROCEDURE: Repeat low transverse section. PRIMARY SURGEON: Nidhi Swift MD, present for entire procedure. SUBMARINE ADVISORY TEAM WATCH OFFICER: GURINDER Cordova. ANESTHESIA: CSE. COMPLICATIONS: None known. ESTIMATED BLOOD LOSS: 600 mL. INTRAVENOUS FLUIDS: 1000 mL of crystalloid. URINE OUTPUT: 100 mL of clear urine at the end of the procedure. INDICATIONS: A 30-year-old 3, para 2 female at 39 weeks 0 days with history of previous section x2. FINDINGS: Normal-appearing female infant, cephalic presentation, clear amniotic fluid. scores 8 and 9. Weight 8 pounds 2 ounces. Normal-appearing fallopian tubes and ovaries. Uterine window noted at site of previous uterine incision. PROCEDURE IN DETAIL: The patient was taken to the operating room where epidural anesthesia was found to be adequate. She was prepped and draped in the normal sterile fashion in the dorsal supine position with a leftward tilt. Skin incision was made with scalpel and carried out to the underlying layer of fascia, which was incised in the midline. Fascial incision was then extended laterally with Mabry scissors bilaterally. The superior aspect of the fascial incision was then grasped with Charlotte clamps, elevated, and dissected off the rectus muscles with Mayos. The inferior aspect of the fascial incision was then grasped with Kochers and in a likewise manner was elevated and dissected off with Mayos. The peritoneum was then entered with Metzenbaum scissors, and a large Riley O-Ring was introduced into the peritoneal cavity for increased visualization. A thin uterine window was then noted, and the uterine serosa was grasped with the pickups and entered with Metzenbaum scissors and extended digitally. Amniotic sac was incidentally ruptured at this time with clear fluid noted. 's head delivered atraumatically. Nose and mouth suctioned with bulb. Cord clamped and cut. handed off to awaiting nursing staff. The placenta was then expressed after obtaining arterial, venous, and cord blood gases. Uterus was then exteriorized, and the abdomen cleared of all clots and debris. The uterine incision was then repaired in a running locked fashion with 0 Monocryl, and wvyrry-[id number]-[id number] suture was placed at the midline of the uterine incision for hemostasis. Excellent hemostasis was then noted. The uterus was then returned to the abdomen. Gutters cleared of all clots and debris. The Riley O was then removed. The peritoneum was then closed in a running fashion with 2-0 Vicryl. The fascia was then closed with 0 Vicryl in a running fashion. The incision was irrigated. Hemostasis was assured. Subcutaneous tissues were closed with 2-0 plain gut and skin was closed with 4-0 Vicryl on a Alex needle and Steri-Strips were placed over the dressing. Sponge, lap, and needle count were correct x2. Prophylactic antibiotics were given prior to the procedure. The patient tolerated the procedure well and was recovering with infant in Labor and Delivery room. KELLY DAHL /[id number]
[2020-10-08] MEDS: Ketorolac 30 MG/ML SDV IVPUSH SCH (19:59)
[2020-10-08] MEDS: Docusate Sodium 100 MG Cap PO SCH (19:59)
[2020-10-09] MEDS: Ketorolac 30 MG/ML SDV IVPUSH SCH ×2 (01:54→07:36)
--- NOTE | 2020-10-09 08:11 | PCM.PNPP ---
- General Info Date of Service: 10/09/20 Subjective Update: Resting comfortably in bed during rounds. Pain well controlled. Lochia decreasing. Ambulating and voiding without difficulty. Tolerating regular diet. , going well. - General Info Date of Service: 10/09/20 - Patient Data Vital Signs - Most Recent: Last Vital Signs Temp 97.2 F 10/09/20 07:52 Pulse 72 10/09/20 07:52 Resp 18 10/09/20 07:52 BP 115/65 10/09/20 07:52 Pulse Ox 95 10/09/20 07:52 Weight - Most Recent: 195 lb 0.017 oz I&O - Last 24 Hours: Intake & Output 10/08/20 10/09/20 10/09/20 22:59 06:59 14:59 Intake Total 1000 Output Total 1100 1800 Balance -100 -1800 Lab Results - Last 24 Hours: Laboratory Results - last 24 hr 10/09/20 Range/Units 05:05 Hgb 9.3 L (12.0-16.0) g/dL Hct 27.6 L (36.0-46.0) % Med Orders - Current: Current Medications Bisacodyl (Bisacodyl 10 Mg Supp) 10 mg RECTAL ONETIME PRN PRN Reason: Constipation Diphenhydramine HCl (Diphenhydramine 50 Mg/Ml Sdv) 25 mg IVPUSH Q6H PRN PRN Reason: Itching or Nausea Last Admin: 10/08/20 10:28 Dose: 25 mg Documented by: Docusate Sodium (Docusate Sodium 100 Mg Cap) 100 mg PO BID [facility] Last Admin: 10/08/20 19:59 Dose: 100 mg Documented by: Emollient Ointment (Lanolin 100% Cream 7 Gm Tube) 0 gm TOP ASDIRECTED PRN PRN Reason: Sore Nipples Oxytocin/Sodium Chloride (Oxytocin 30 Unit/500 Ml-Ns) 30 unit in 500 mls @ 250 mls/hr IV TITRATE [facility] Lactated Ringer's (Ringers, Lactated) 1,000 mls @ 500 mls/hr IV BOLUS [facility] Last Admin: 10/08/20 06:21 Dose: 500 mls/hr Documented by: Lactated Ringer's (Ringers, Lactated) 1,000 mls @ 125 mls/hr IV ASDIRECTED [facility] Last Admin: 10/08/20 18:43 Dose: 125 mls/hr Documented by: Oxytocin/Lactated Ringer's (Pitocin In Lr 30 Units/500 Ml) 30 unit in 500 mls @ 999 mls/hr IV TITRATE [facility]; Protocol Tranexamic Acid 1,000 mg/ (Sodium Chloride) 110 mls @ 660 mls/hr IV ONETIME PRN PRN Reason: Bleeding Ibuprofen (Ibuprofen 800 Mg Tab) 800 mg PO Q8H PRN PRN Reason: mild pain or fever Ketorolac Tromethamine (Ketorolac 30 Mg/Ml Sdv) 30 mg IVPUSH Q6H [facility] Stop: 10/09/20 08:16 Last Admin: 10/09/20 07:36 Dose: 30 mg Documented by: Methylergonovine Maleate (Methylergonovine 0.2 Mg/1 Ml Amp) 0.2 mg IM ONETIME PRN PRN Reason: Excessive Vaginal Bleeding Misoprostol (Misoprostol 200 Mcg Tab) 1,000 mcg RECTAL ONETIME PRN PRN Reason: excessive bleeding Ondansetron HCl (Ondansetron 4 Mg/2 Ml Sdv) 4 mg IVPUSH Q4H PRN PRN Reason: Nausea/Vomiting Oxycodone/Acetaminophen (Acetaminophen/Oxycodone 325-5 Mg Tab) 1 tab PO Q4H PRN PRN Reason: Pain (severe 7-10) Oxycodone/Acetaminophen (Acetaminophen/Oxycodone 325-5 Mg Tab) 2 tab PO Q4H PRN PRN Reason: Pain (severe 7-10) Oxytocin (Oxytocin 10 Units/1 Ml Sdv) 10 unit IM ASDIRECTED PRN PRN Reason: Excessive Vaginal Bleeding Sodium Chloride (Sodium Chloride 0.9% 10 Ml Syringe) 10 ml FLUSH ASDIRECTED PRN PRN Reason: Keep Vein Open Sodium Chloride (Sodium Chloride 0.9% 2.5 Ml Syringe) 2.5 ml FLUSH ASDIRECTED PRN PRN Reason: Keep Vein Open Sodium Chloride (Sodium Chloride 0.9% 10 Ml Sdv) 10 ml IV ASDIRECTED PRN PRN Reason: IV Use Discontinued Medications Citric Acid/Sodium Citrate (Citric Acid/Sodium Citrate Solution 30 Ml Cup) 30 ml PO ONETIME ONE Stop: 10/08/20 05:10 Last Admin: 10/08/20 14:57 Dose: Not Given Documented by: Fentanyl (Fentanyl 100 Mcg/2 Ml Sdv) Confirm Administered Dose 100 mcg .ROUTE .STK-MED ONE Stop: 10/08/20 07:21 Ibuprofen (Ibuprofen 800 Mg Tab) 800 mg PO Q8H PRN PRN Reason: mild pain or fever Ketorolac Tromethamine (Ketorolac 30 Mg/Ml Sdv) Confirm Administered Dose 30 mg .ROUTE .STK-MED ONE Stop: 10/08/20 08:21 Ketorolac Tromethamine (Ketorolac 30 Mg/Ml Sdv) 30 mg IVPUSH Q6H [facility] Stop: 10/09/20 09:31 Last Admin: 10/08/20 14:13 Dose: 30 mg Documented by: Miscellaneous Medication (Phenylephrine Hcl In 0.9% Nacl 1 Mg/10 Ml Syringe) Confirm Administered Dose 1 mg .ROUTE .STK-MED ONE Stop: 10/08/20 08:21 Miscellaneous Medication (Phenylephrine Hcl In 0.9% Nacl 1 Mg/10 Ml Syringe) Confirm Administered Dose 1 mg .ROUTE .STK-MED ONE Stop: 10/08/20 08:56 Morphine Sulfate (Morphine Pf 10 Mg/10 Ml Sdv) Confirm Administered Dose 10 mg .ROUTE .STK-MED ONE Stop: 10/08/20 07:22 Octyl Cyanoacrylate (Octyl 2-Cyanoacrylate 1 Tube) Confirm Administered Dose 1 applic .ROUTE .STK-MED ONE Stop: 10/08/20 07:50 Last Admin: 10/08/20 20:21 Dose: Not Given Documented by: Ondansetron HCl (Ondansetron 4 Mg/2 Ml Sdv) Confirm Administered Dose 4 mg .ROUT E .STK-MED ONE Stop: 10/08/20 08:21 Oxytocin (Oxytocin 10 Units/1 Ml Sdv) Confirm Administered Dose 30 unit .ROUTE .STK-MED ONE Stop: 10/08/20 08:21 - Infant Interaction Infant Disposition, : at Bedside Feeding: Breastfed Infant; Nursed Well Support Person: - Recovery Exam Fundal Tone: Firm Fundal Level: At Umbilicus Fundal Placement: Midline Lochia Amount: Scant Lochia Color: Rubra/Red Bladder Status: Voiding - Exam General: Alert Lungs: Normal Respiratory Effort Cardiovascular: Regular Rate GI/Abdominal Exam: Soft, Non-Tender Extremities: Normal Range of Motion, Non-Tender, No Pedal Edema Skin: Warm, Dry, Intact Wound/Incisions: Dressing Dry and Intact Neurological: No New Focal Deficit Psy/Mental Status: Normal Mood - Problem List Review Problem List Initiated/Reviewed/Updated: Yes - My Orders Last 24 Hours: My Active Orders 10/08/20 09:23 Acetaminophen/oxyCODONE [Percocet 325-5 MG] 1 tab PO Q4H PRN Acetaminophen/oxyCODONE [Percocet 325-5 MG] 2 tab PO Q4H PRN Lanolin [Lansinoh HPA] See Dose Instructions TOP ASDIRECTED PRN Methylergonovine [Methergine] 0.2 mg IM ONETIME PRN Ondansetron [Zofran] 4 mg IVPUSH Q4H PRN Oxytocin [Pitocin] 10 unit IM ASDIRECTED PRN Tranexamic Acid [Cyklokapron] 1,000 mg Sodium Chloride 0.9% [Normal Saline] 100 ml IV ONETIME bisacodyL [Dulcolax] 10 mg RECTAL ONETIME PRN diphenhydrAMINE [Benadryl] 25 mg IVPUSH Q6H PRN miSOPROStoL [Cytotec] 1,000 mcg RECTAL ONETIME PRN 10/08/20 09:24 Patient Status [ADT] Routine Antiembolic Devices [RC] PER UNIT ROUTINE Communication Order [RC] PER UNIT ROUTINE Communication Order [RC] Per Unit Routine May Shower [RC] ASDIRECTED RT Incentive Spirometry [RC] Q2HWA Vital Signs [RC] PER UNIT ROUTINE Assess Lochia [WOMSER] Per Unit Routine Assess Uterine Involution [WOMSER] Per Unit Routine Breast Pump [WOMSER] Per Unit Routine Peripheral IV Discontinue [OM.PC] Routine Sequential Compression Device [OM.PC] Per Unit Routine 10/08/20 09:30 Lactated Ringers [Ringers, Lactated] 1,000 ml IV ASDIRECTED Oxytocin/Lactated Ringers [Pitocin in LR 30 Units/500 ML] 30 unit in 500 ml IV TITRATE 10/08/20 20:15 Ketorolac [Toradol] 30 mg IVPUSH Q6H 10/08/20 21:00 Docusate Sodium [Colace] 100 mg PO BID 10/09/20 14:15 Ibuprofen [Motrin] 800 mg PO Q8H PRN - Assessment Assessment:: 30 year old female POD1 s/p repeat LTCS - Plan Plan:: Routine postoperative/ cares * Rh positive, rubella immune, GBS negative * PO pain medication ordered * Regular diet as tolerated * Encourage fluid intake and ambulation, may shower today and remove dressing * , going well Dispo: stable. Anticipate discharge tomorrow pending maternal/infant status. C henrietta cares today.
[2020-10-09] MEDS: Docusate Sodium 100 MG Cap PO SCH ×2 (09:49→20:38)
[2020-10-09] MEDS ORDERED: Ibuprofen 800 MG Tab PO PRN (14:15)
--- NOTE | 2020-10-10 07:42 | PCM.PNPP ---
<Anaya Farmer - Last Filed: 10/10/20 07:37> - General Info Date of Service: 10/10/20 Subjective Update: Patient doing well this morning. Minimal pain and bleeding. Pain well controlled. Ambulating and voiding without difficulty. Tolerating regular diet. and supplemental formula feeding going well. Denies chest pain, shortness of breath, lower extremity pain. Functional Status: Reports: Pain Controlled - Review of Systems General: Reports: No Symptoms HEENT: Reports: No Symptoms Pulmonary: Reports: No Symptoms Cardiovascular: Reports: No Symptoms Gastrointestinal: Reports: No Symptoms Genitourinary: Reports: No Symptoms Musculoskeletal: Reports: No Symptoms Skin: Reports: No Symptoms Neurological: Reports: No Symptoms Psychiatric: Reports: No Symptoms - General Info Date of Service: 10/10/20 - Patient Data Vital Signs - Most Recent: Last Vital Signs Temp 97.7 F 10/10/20 03:00 Pulse 61 10/10/20 03:00 Resp 16 10/10/20 03:00 BP 101/58 L 10/10/20 03:00 Pulse Ox 94 L 10/10/20 03:00 Weight - Most Recent: 195 lb 0.017 oz Med Orders - Current: Current Medications Bisacodyl (Bisacodyl 10 Mg Supp) 10 mg RECTAL ONETIME PRN PRN Reason: Constipation Diphenhydramine HCl (Diphenhydramine 50 Mg/Ml Sdv) 25 mg IVPUSH Q6H PRN PRN Reason: Itching or Nausea Last Admin: 10/08/20 10:28 Dose: 25 mg Documented by: Docusate Sodium (Docusate Sodium 100 Mg Cap) 100 mg PO BID [facility] Last Admin: 10/09/20 20:38 Dose: 100 mg Documented by: Emollient Ointment (Lanolin 100% Cream 7 Gm Tube) 0 gm TOP ASDIRECTED PRN PRN Reason: Sore Nipples Last Admin: 10/09/20 16:45 Dose: 1 tube Documented by: Oxytocin/Sodium Chloride (Oxytocin 30 Unit/500 Ml-Ns) 30 unit in 500 mls @ 250 mls/hr IV TITRATE [facility] Lactated Ringer's (Ringers, Lactated) 1,000 mls @ 500 mls/hr IV BOLUS [facility] Last Admin: 10/08/20 06:21 Dose: 500 mls/hr Documented by: Lactated Ringer's (Ringers, Lactated) 1,000 mls @ 125 mls/hr IV ASDIRECTED [facility] Last Admin: 10/08/20 18:43 Dose: 125 mls/hr Documented by: Oxytocin/Lactated Ringer's (Pitocin In Lr 30 Units/500 Ml) 30 unit in 500 mls @ 999 mls/hr IV TITRATE [facility]; Protocol Tranexamic Acid 1,000 mg/ (Sodium Chloride) 110 mls @ 660 mls/hr IV ONETIME PRN PRN Reason: Bleeding Ibuprofen (Ibuprofen 800 Mg Tab) 800 mg PO Q8H PRN PRN Reason: mild pain or fever Last Admin: 10/09/20 23:29 Dose: 800 mg Documented by: Methylergonovine Maleate (Methylergonovine 0.2 Mg/1 Ml Amp) 0.2 mg IM ONETIME PRN PRN Reason: Excessive Vaginal Bleeding Misoprostol (Misoprostol 200 Mcg Tab) 1,000 mcg RECTAL ONETIME PRN PRN Reason: excessive bleeding Ondansetron HCl (Ondansetron 4 Mg/2 Ml Sdv) 4 mg IVPUSH Q4H PRN PRN Reason: Nausea/Vomiting Oxycodone/Acetaminophen (Acetaminophen/Oxycodone 325-5 Mg Tab) 1 tab PO Q4H PRN PRN Reason: Pain (severe 7-10) Last Admin: 10/10/20 06:02 Dose: 1 tab Documented by: Oxycodone/Acetaminophen (Acetaminophen/Oxycodone 325-5 Mg Tab) 2 tab PO Q4H PRN PRN Reason: Pain (severe 7-10) Oxytocin (Oxytocin 10 Units/1 Ml Sdv) 10 unit IM ASDIRECTED PRN PRN Reason: Excessive Vaginal Bleeding Sodium Chloride (Sodium Chloride 0.9% 10 Ml Syringe) 10 ml FLUSH ASDIRECTED PRN PRN Reason: Keep Vein Open Sodium Chloride (Sodium Chloride 0.9% 2.5 Ml Syringe) 2.5 ml FLUSH ASDIRECTED PRN PRN Reason: Keep Vein Open Sodium Chloride (Sodium Chloride 0.9% 10 Ml Sdv) 10 ml IV ASDIRECTED PRN PRN Reason: IV Use Discontinued Medications Citric Acid/Sodium Citrate (Citric Acid/Sodium Citrate Solution 30 Ml Cup) 30 ml PO ONETIME ONE Stop: 10/08/20 05:10 Last Admin: 10/08/20 14:57 Dose: Not Given Documented by: Fentanyl (Fentanyl 100 Mcg/2 Ml Sdv) Confirm Administered Dose 100 mcg .ROUTE .STK-MED ONE Stop: 10/08/20 07:21 Ibuprofen (Ibuprofen 800 Mg Tab) 800 mg PO Q8H PRN PRN Reason: mild pain or fever Ketorolac Tromethamine (Ketorolac 30 Mg/Ml Sdv) Confirm Administered Dose 30 mg .ROUTE .STK-MED ONE Stop: 10/08/20 08:21 Ketorolac Tromethamine (Ketorolac 30 Mg/Ml Sdv) 30 mg IVPUSH Q6H [facility] Stop: 10/09/20 09:31 Last Admin: 10/08/20 14:13 Dose: 30 mg Documented by: Ketorolac Tromethamine (Ketorolac 30 Mg/Ml Sdv) 30 mg IVPUSH Q6H [facility] Stop: 10/09/20 08:16 Last Admin: 10/09/20 07:36 Dose: 30 mg Documented by: Miscellaneous Medication (Phenylephrine Hcl In 0.9% Nacl 1 Mg/10 Ml Syringe) Confirm Administered Dose 1 mg .ROUTE .STK-MED ONE Stop: 10/08/20 08:21 Miscellaneous Medication (Phenylephrine Hcl In 0.9% Nacl 1 Mg/10 Ml Syringe) Confirm Administered Dose 1 mg .ROUTE .STK-MED ONE Stop: 10/08/20 08:56 Morphine Sulfate (Morphine Pf 10 Mg/10 Ml Sdv) Confirm Administered Dose 10 mg .ROUTE .STK-MED ONE Stop: 10/08/20 07:22 Octyl Cyanoacrylate (Octyl 2-Cyanoacrylate 1 Tube) Confirm Administered Dose 1 applic .ROUTE .STK-MED ONE Stop: 10/08/20 07:50 Last Admin: 10/08/20 20:21 Dose: Not Given Documented by: Ondansetron HCl (Ondansetron 4 Mg/2 Ml Sdv) Confirm Administered Dose 4 mg .ROUTE .STK-MED ONE Stop: 10/08/20 08:21 Oxytocin (Oxytocin 10 Units/1 Ml Sdv) Confirm Administered Dose 30 unit .ROUTE .STK-MED ONE Stop: 10/08/20 08:21 - Infant Interaction Infant Disposition, : [place] in Room with Family Infant Interaction: Holding Feeding: Breastfed Infant; Nursed Well (Supplemental formula feeding) Support Person: - Recovery Exam Fundal Tone: Firm Fundal Level: 1 Fingerbreadths Below Umbilicus Fundal Placement: Midline Lochia Amount: Scant Lochia Color: Rubra/Red Bladder Status: Voiding Urinary Elimination: Other (see below) Other Urinary Elimination, : was getting up to BR following assess - Exam General: Alert, Oriented, Cooperative, No Acute Distress HEENT: Pupils Equal, Pupils Reactive Neck: Supple Lungs: Clear to Auscultation, Normal Respiratory Effort Cardiovascular: Regular Rate, Regular Rhythm GI/Abdominal Exam: Normal Bowel Sounds, Soft, Non-Tender, No Distention Extremities: Normal Inspection, Normal Range of Motion, Non-Tender, No Pedal Edema Skin: Warm, Dry, Intact Wound/Incisions: Healing Well Neurological: No New Focal Deficit Psy/Mental Status: Alert, Normal Affect, Normal Mood - Problem List Review Problem List Initiated/Reviewed/Updated: Yes - Assessment Assessment:: 30 year old female POD2 s/p repeat LTCS - Plan Plan:: Routine postoperative/ cares * Rh positive, rubella immune, GBS negative * PO pain medication ordered * Regular diet as tolerated * Encourage fluid intake and ambulation * and supplemental bottle feeding, going well Dispo: stable. Anticipate discharge today pending maternal/infant status. Continue cares today. <Nidhi Naranjo - Last Filed: 10/10/20 08:40> - Patient Data Vital Signs - Most Recent: Last Vital Signs Temp 98.3 F 10/10/20 07:41 Pulse 63 10/10/20 07:41 Resp 18 10/10/20 07:41 BP 112/65 10/10/20 07:41 Pulse Ox 96 10/10/20 07:41 Med Orders - Current: Current Medications Bisacodyl (Bisacodyl 10 Mg Supp) 10 mg RECTAL ONETIME PRN PRN Reason: Constipation Diphenhydramine HCl (Diphenhydramine 50 Mg/Ml Sdv) 25 mg IVPUSH Q6H PRN PRN Reason: Itching or Nausea Last Admin: 10/08/20 10:28 Dose: 25 mg Documented by: Docusate Sodium (Docusate Sodium 100 Mg Cap) 100 mg PO BID [facility] Last Admin: 10/10/20 08:08 Dose: 100 mg Documented by: Emollient Ointment (Lanolin 100% Cream 7 Gm Tube) 0 gm TOP ASDIRECTED PRN PRN Reason: Sore Nipples Last Admin: 10/09/20 16:45 Dose: 1 tube Documented by: Oxytocin/Sodium Chloride (Oxytocin 30 Unit/500 Ml-Ns) 30 unit in 500 mls @ 250 mls/hr IV TITRATE [facility] Lactated Ringer's (Ringers, Lactated) 1,000 mls @ 500 mls/hr IV BOLUS [facility] Last Admin: 10/08/20 06:21 Dose: 500 mls/hr Documented by: Lactated Ringer's (Ringers, Lactated) 1,000 mls @ 125 mls/hr IV ASDIRECTED [facility] Last Admin: 10/08/20 18:43 Dose: 125 mls/hr Documented by: Oxytocin/Lactated Ringer's (Pitocin In Lr 30 Units/500 Ml) 30 unit in 500 mls @ 999 mls/hr IV TITRATE [facility]; Protocol Tranexamic Acid 1,000 mg/ (Sodium Chloride) 110 mls @ 660 mls/hr IV ONETIME PRN PRN Reason: Bleeding Ibuprofen (Ibuprofen 800 Mg Tab) 800 mg PO Q8H PRN PRN Reason: mild pain or fever Last Admin: 10/09/20 23:29 Dose: 800 mg Documented by: Methylergonovine Maleate (Methylergonovine 0.2 Mg/1 Ml Amp) 0.2 mg IM ONETIME PRN PRN Reason: Excessive Vaginal Bleeding Misoprostol (Misoprostol 200 Mcg Tab) 1,000 mcg RECTAL ONETIME PRN PRN Reason: excessive bleeding Ondansetron HCl (Ondansetron 4 Mg/2 Ml Sdv) 4 mg IVPUSH Q4H PRN PRN Reason: Nausea/Vomiting Oxycodone/Acetaminophen (Acetaminophen/Oxycodone 325-5 Mg Tab) 1 tab PO Q4H PRN PRN Reason: Pain (severe 7-10) Last Admin: 10/10/20 06:02 Dose: 1 tab Documented by: Oxycodone/Acetaminophen (Acetaminophen/Oxycodone 325-5 Mg Tab) 2 tab PO Q4H PRN PRN Reason: Pain (severe 7-10) Oxytocin (Oxytocin 10 Units/1 Ml Sdv) 10 unit IM ASDIRECTED PRN PRN Reason: Excessive Vaginal Bleeding Sodium Chloride (Sodium Chloride 0.9% 10 Ml Syringe) 10 ml FLUSH ASDIRECTED PRN PRN Reason: Keep Vein Open Sodium Chloride (Sodium Chloride 0.9% 2.5 Ml Syringe) 2.5 ml FLUSH ASDIRECTED PRN PRN Reason: Keep Vein Open Sodium Chloride (Sodium Chloride 0.9% 10 Ml Sdv) 10 ml IV ASDIRECTED PRN PRN Reason: IV Use Discontinued Medications Citric Acid/Sodium Citrate (Citric Acid/Sodium Citrate Solution 30 Ml Cup) 30 ml PO ONETIME ONE Stop: 10/08/20 05:10 Last Admin: 10/08/20 14:57 Dose: Not Given Documented by: Fentanyl (Fentanyl 100 Mcg/2 Ml Sdv) Confirm Administered Dose 100 mcg .ROUTE .STK-MED ONE Stop: 10/08/20 07:21 Ibuprofen (Ibuprofen 800 Mg Tab) 800 mg PO Q8H PRN PRN Reason: mild pain or fever Ketorolac Tromethamine (Ketorolac 30 Mg/Ml Sdv) Confirm Administered Dose 30 mg .ROUTE .STK-MED ONE Stop: 10/08/20 08:21 Ketorolac Tromethamine (Ketorolac 30 Mg/Ml Sdv) 30 mg IVPUSH Q6H [facility] Stop: 10/09/20 09:31 Last Admin: 10/08/20 14:13 Dose: 30 mg Documented by: Ketorolac Tromethamine (Ketorolac 30 Mg/Ml Sdv) 30 mg IVPUSH Q6H [facility] Stop: 10/09/20 08:16 Last Admin: 10/09/20 07:36 Dose: 30 mg Documented by: Miscellaneous Medication (Phenylephrine Hcl In 0.9% Nacl 1 Mg/10 Ml Syringe) Confirm Administered Dose 1 mg .ROUTE .STK-MED ONE Stop: 10/08/20 08:21 Miscellaneous Medication (Phenylephrine Hcl In 0.9% Nacl 1 Mg/10 Ml Syringe) Confirm Administered Dose 1 mg .ROUTE .STK-MED ONE Stop: 10/08/20 08:56 Morphine Sulfate (Morphine Pf 10 Mg/10 Ml Sdv) Confirm Administered Dose 10 mg .ROUTE .STK-MED ONE Stop: 10/08/20 07:22 Octyl Cyanoacrylate (Octyl 2-Cyanoacrylate 1 Tube) Confirm Administered Dose 1 applic .ROUTE .STK-MED ONE Stop: 10/08/20 07:50 Last Admin: 10/08/20 20:21 Dose: Not Given Documented by: Ondansetron HCl (Ondansetron 4 Mg/2 Ml Sdv) Confirm Administered Dose 4 mg .ROUTE .STK-MED ONE Stop: 10/08/20 08:21 Oxytocin (Oxytocin 10 Units/1 Ml Sdv) Confirm Administered Dose 30 unit .ROUTE .STK-MED ONE Stop: 10/08/20 08:21 - My Orders Last 24 Hours: My Active Orders 10/09/20 Lunch Regular Diet [DIET] 10/09/20 14:15 Ibuprofen [Motrin] 800 mg PO Q8H PRN - Plan Plan:: Agree with above. Anticipate discharge today. Reviewed discharge instructions/precautions. Patient to follow up in 2 weeks for incision check at [facility].
[2020-10-10] MEDS: Docusate Sodium 100 MG Cap PO SCH (08:08)
== END 2020-10-10 12:20 | disposition home or self-care (01) | DRG 540 ==
LOC: MW.OB 05:05
PROVIDERS: ADMIT Obstetrics & Gynecology; ATTEND Obstetrics & Gynecology
PROC: 10D00Z1 Extraction of Products of Conception, Low, Open Approach (ICD-10-PCS; principal; 2020-10-08)
DX: O34.211 Maternal care for low transverse scar from previous cesarean delivery (principal); Z37.0 Single live birth; O99.214 Obesity complicating childbirth; Z3A.39 39 weeks gestation of pregnancy
CPT/HCPCS: 01961; 36415; 59025; 85014; 85018; 85027; 86592; 86850; 86900; 86901; A9270-GY; J1200; J1885; J2270; J2370; J2405; J2590; J3010; J7120